=== PATIENT | female | born 1955 | race Caucasian/White ===

== ENCOUNTER 2022-04-29 13:58 | Emergency (ER) | payer BC ==
[~2022-04-29] VITALS: Ht 172.7 cm; Wt 59.0 kg
[~2022-04-29 13:58] MED LIST: AEC81 PO; ALBUHFA IH; ATOR40TA71 PO; CETI10TA57 PO; CLOP-31 PO; DOCU100C33 PO; INHA1EAC51 MC; LISI20TA24 PO; METO-391 PO; PANT40TA54 PO
[2022-04-29 17:18] VITALS: BP 135/72
== END 2022-04-29 17:27 | disposition home or self-care (01) ==
LOC: EDH 13:58
DX: N28.1 Cyst of kidney, acquired (principal); K59.00 Constipation, unspecified; I10 Essential (primary) hypertension; K21.9 Gastro-esophageal reflux disease without esophagitis; Z90.49 Acquired absence of other specified parts of digestive tract; Z96.649 Presence of unspecified artificial hip joint; Z88.8 Allergy status to other drugs, medicaments and biological substances; Z79.899 Other long term (current) drug therapy
CPT/HCPCS: 74176